=== PATIENT | male | born 1975 | race Two or more races ===

== ENCOUNTER 2020-04-13 10:41 | Emergency (ER) | payer OTHER ==
[~2020-04-13] VITALS: Ht 165.1 cm; Wt 61.3 kg
[2020-04-13 10:45] VITALS: BP 121/82
--- NOTE | 2020-04-13 11:27 | NUR ---
"He works around a lot of people, so we don't know if he's been exposed to COVID-19." Pt sitting up in bed, NADN, respirations even and unlabored.
[2020-04-13] MEDS ORDERED: ACETAMINOPHEN 325 MG TABLET PO ONE (11:30)
--- NOTE | 2020-04-13 11:57 | NUR ---
Patient & given discharge instructions and they have confirmed that they understand the instructions. Patient ambulatory with steady gait.
== END 2020-04-13 11:59 | disposition home or self-care (01) ==
LOC: ED 11:19
DX: U07.1 COVID-19 (principal); R50.9 Fever, unspecified; R51.9 Headache, unspecified
CPT/HCPCS: 87635; 99283